=== PATIENT | male | born 1960 | race Caucasian/White ===

== ENCOUNTER 2017-07-19 19:53 | Emergency (ER) | payer OTHER ==
--- NOTE | 2017-07-19 21:13 | EDM.PDOC ---
ED HPI GENERAL MEDICAL PROBLEM - General Chief Complaint: Skin Complaint Stated Complaint: INFECTION ON RT ARM Time Seen by Provider: 07/19/17 20:53 - History of Present Illness INITIAL COMMENTS - FREE TEXT/NARRATIVE: HISTORY AND PHYSICAL: History of present illness: The patient is a healthy 57-year-old male who is up-to-date on his tetanus and presents with concern about infection on his right forearm that has been ongoing for the last one month. The patient says he had a mole there that he thinks got irritated and it proceeded to get more red and bumpy and crusty scab- like. He says that 2 weeks ago he had a similar rash on his upper thighs and lower abdomen but that has since gone away. Patient does not have any systemic complaints and is concerned because the rash on the forearm has not completely resolved. He has no fevers chills abdominal pain or other rashes currently. Review of systems: As per history of present illness and below otherwise all systems reviewed and negative. Past medical history: As per history of present illness and as reviewed below otherwise noncontributory. Surgical history: As per history of present illness and as reviewed below otherwise noncontributory. Social history: No reported history of drug or alcohol abuse. Family history: As per history of present illness and as reviewed below otherwise noncontributory. Physical exam: Gen.: Well-developed well-nourished man who is nontoxic and vital signs have been reviewed by me HEENT: Atraumatic, normocephalic, negative for conjunctival pallor or scleral icterus, mucous membranes moist, throat clear, neck supple, nontender, trachea midline. Lungs: Clear to auscultation, breath sounds equal bilaterally, chest nontender. Heart: S1S2, regular in rhythm no overt murmurs Abdomen: Soft, nondistended, nontender. NABS Pelvis: Deferred Genitourinary: Deferred. Rectal: Deferred. Extremities: Atraumatic, negative for cords or calf pain. Neurovascular unremarkable. Full range of motion without defects or deficits. Please see skin exam for right forearm Neuro: Awake, alert, oriented. Cranial nerves II through XII unremarkable. Cerebellum unremarkable. Motor and sensory unremarkable throughout. Exam nonfocal. Skin: At the right upper forearm on the dorsal aspect there is a scab-like areas seen which is job and yellow and crusty-like in character with a surrounding well demarcated from the erythematous rash. It does not streak up his arm in the compartment is soft. There is no gross drainage or fluctuance appreciated and no crepitance neurovascular is intact in the arm Diagnostics: [] Therapeutics: [] I discussed with the patient that this is likely a strep infection and that I will place him on oral antibiotics as well as Bactroban. Impression: Strep infection/impetigo right forearm Definitive disposition and diagnosis as appropriate pending reevaluation and review of above. right forearm Pain Score (Numeric/FACES): 2 - Related Data Allergies Allergy/AdvReac Type Severity Reaction Status Date / Time meperidine [From Demerol] Allergy Other Verified 07/19/17 20:39 seasonal Allergy Sneezing Uncoded 07/19/17 20:39 Home Meds: Home Meds . [No Known Home Meds] 07/19/17 [History] ED ROS GENERAL - Review of Systems Review Of Systems: ROS reveals no pertinent complaints other than HPI. ED EXAM, SKIN/RASH Exam: See Below (See dictation) Course - Vital Signs Last Recorded V/S: Last Vital Signs Temp 36.4 C 07/19/17 20:32 Pulse 60 07/19/17 20:32 Resp 18 07/19/17 20:32 BP 139/85 07/19/17 20:32 Pulse Ox 98 07/19/17 20:32 Departure - Departure Time of Disposition: 21:12 Disposition: Home, Self-Care 01 Condition: Good Clinical Impression: Impetigo Cellulitis Qualifiers: Site of cellulitis: extremity Site of cellulitis of extremity: upper extremity Laterality: right Qualified Code(s): L03.113 - Cellulitis of right upper limb - Discharge Information Referrals: PCP,None [Primary Care Provider] - Additional Instructions: The following information is given to patients seen in the emergency department who are being discharged to home. This information is to outline your options for follow-up care. We provide all patients seen in our emergency department with a follow-up referral. The need for follow-up, as well as the timing and circumstances, are variable depending upon the specifics of your emergency department visit. If you don't have a primary care physician on staff, we will provide you with a referral. We always advise you to contact your personal physician following an emergency department visit to inform them of the circumstance of the visit and for follow-up with them and/or the need for any referrals to a consulting specialist. The emergency department will also refer you to a specialist when appropriate. This referral assures that you have the opportunity for followup care with a specialist. All of these measure are taken in an effort to provide you with optimal care, which includes your followup. Under all circumstances we always encourage you to contact your private physician who remains a resource for coordinating your care. When calling for followup care, please make the office aware that this follow-up is from your recent emergency room visit. If for any reason you are refused follow-up, please contact the [facility] emergency department at and ask to speak to the emergency department charge nurse. [facility] Primary care- Internal Medicine and Family [address] [address] Please take oral antibiotics and apply topical antibacterial to the area as directed. Please call and follow-up with one of our clinic providers for reevaluation of this care plan. Return to ER as needed and as discussed. Do not manipulate the area.
== END 2017-07-19 21:20 | disposition home or self-care (01) ==
LOC: MW.ED 19:53
DX: L03.113 Cellulitis of right upper limb (principal); B95.5 Unspecified streptococcus as the cause of diseases classified elsewhere; L01.00 Impetigo, unspecified; Z88.5 Allergy status to narcotic agent; Z91.09 Other allergy status, other than to drugs and biological substances
CPT/HCPCS: 99282; 99283

== ENCOUNTER 2017-07-24 09:42 | Emergency (ER) | payer OTHER ==
--- NOTE | 2017-07-24 10:17 | EDM.PDOC ---
ED HPI GENERAL MEDICAL PROBLEM - General Chief Complaint: Skin Complaint Stated Complaint: right arm infection Time Seen by Provider: 07/24/17 10:17 Source of Information: Reports: Patient - History of Present Illness INITIAL COMMENTS - FREE TEXT/NARRATIVE: HISTORY AND PHYSICAL: History of present illness: [Patient presents with a dermatitis/cellulitis on his right forearm, he has minimal involvement on the left. He has been having difficulty with rashes over the last week to 2 weeks. Has pictures of a similar rash on his trunk and groin area last week which resolved on its own, rash began on his right forearm is scaly there is a scab over the lesion. He was started on Bactroban and amoxicillin for an impetiginous type infection. He is on day 5 of treatment for this. He had returned home to [place] and noted that the rash resolved on trunk and groin. On returning to [place] rash flared somewhat on his right upper extremity on return to [place] as well as significant doubling in size of since last night after a phone argument with his over money issues. 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 Fever nausea vomiting chills sweats no chest pain shortness breath headache dizziness palpitation no bowel or urine symptoms Review of systems: As per history of present illness and below otherwise all systems reviewed and negative. Past medical history: As per history of present illness and as reviewed below otherwise noncontributory. Surgical history: As per history of present illness and as reviewed below otherwise noncontributory. Social history: No reported history of drug or alcohol abuse. Family history: As per history of present illness and as reviewed below otherwise noncontributory. Physical exam: HEENT: Atraumatic, normocephalic, pupils reactive, negative for conjunctival pallor or scleral icterus, mucous membranes moist, throat clear, neck supple, nontender, trachea midline. Lungs: Clear to auscultation, breath sounds equal bilaterally, chest nontender. Heart: S1S2, regular, negative for clicks, rubs, or JVD. Abdomen: Soft, nondistended, nontender. Negative for masses or hepatosplenomegaly. Negative for costovertebral tenderness. Pelvis: Stable nontender. Genitourinary: Deferred. Rectal: Deferred. Extremities: Atraumatic, negative for cords or calf pain. Neurovascular unremarkable. Neuro: Awake, alert, oriented. Cranial nerves II through XII unremarkable. Cerebellum unremarkable. Motor and sensory unremarkable throughout. Exam nonfocal. Skin red scaly rash with a central scab lesion scab lesion is approximately the size of a quarter is dry nonfluctuant there is some serious E drainage which I have cultured very mild warmth, areas approximately palms sized on the right forearm he also has a small lesion about the size of a quarter starting on the left arm it is red maculopapular lesions with no drainage Diagnostics: [Wound culture] Therapeutics: [Lotrisone twice a day 10 days Continue Bactroban as directed Stop amoxicillin Bactrim double strength by mouth twice a day #20 no refill Impression: [Dermatitis/cellulitis Cannot rule out a neurogenic dermatitis] Definitive disposition and diagnosis as appropriate pending reevaluation and review of above. R Forearm Pain Score (Numeric/FACES): 2 - Related Data Allergies Allergy/AdvReac Type Severity Reaction Status Date / Time meperidine [From Demerol] Allergy Other Verified 07/24/17 09:53 seasonal Allergy Sneezing Uncoded 07/24/17 09:53 Home Meds: Home Meds Mupirocin Oint [Bactroban Oint] 1 applic TOP TID 07/24/17 [History] Penicillin V Potassium [Veetids] 1 tab PO TID 07/24/17 [History] Past Medical History - Past Health History Medical/Surgical History: Denies Medical/Surgical History Other Genitourinary History: testicular CA, underwent radiation Hematologic History: Reports: Other (See Below) Other Hematologic History: "Blood poisoning" Other Oncologic History: Testicular, undergone radiation theraphy - Infectious Disease History Infectious Disease History: Reports: Chicken Pox, Measles, Mumps - Past Surgical History Male Surgical History: Reports: None, Other (See Below) Other Male Surgeries/Procedures: R Orchiectomy Oncologic Surgical History: Reports: None Social & Family History - Family History Family Medical History: Noncontributory - Tobacco Use Smoking Status *Q: Never Smoker Second Hand Smoke Exposure: No - Caffeine Use Caffeine Use: Reports: None - Recreational Drug Use Recreational Drug Use: No ED ROS GENERAL - Review of Systems Review Of Systems: ROS reveals no pertinent complaints other than HPI. ED EXAM, SKIN/RASH Exam: See Below Course - Vital Signs Last Recorded V/S: Last Vital Signs Temp 96.0 F 07/24/17 09:48 Pulse 66 07/24/17 09:48 Resp 18 07/24/17 09:48 BP 125/79 07/24/17 09:48 Pulse Ox 96 07/24/17 09:48 Departure - Departure Time of Disposition: 10:30 Disposition: Home, Self-Care 01 Condition: Good Clinical Impression: Cellulitis Cellulitis Qualifiers: Site of cellulitis: extremity Site of cellulitis of extremity: upper extremity Laterality: right Qualified Code(s): L03.113 - Cellulitis of right upper limb - Discharge Information Referrals: PCP,None [Primary Care Provider] - Forms: ED Department Discharge Additional Instructions: Stop amoxicillin Medication as prescribed Return if symptoms persist or worsen Follow-up with primary care in 2 weeks sooner as needed [facility] - Primary Care [address] [place] [id number] The following information is given to patients seen in the emergency department who are being discharged to home. This information is to outline your options for follow-up care. We provide all patients seen in our emergency department with a follow-up referral. The need for follow-up, as well as the timing and circumstances, are variable depending upon the specifics of your emergency department visit. If you don't have a primary care physician on staff, we will provide you with a referral. We always advise you to contact your personal physician following an emergency department visit to inform them of the circumstance of the visit and for follow-up with them and/or the need for any referrals to a consulting specialist. The emergency department will also refer you to a specialist when appropriate. This referral assures that you have the opportunity for follow-up care with a specialist. All of these measure are taken in an effort to provide you with optimal care, which includes your follow-up. Under all circumstances we always encourage you to contact your private physician who remains a resource for coordinating your care. When calling for follow-up care, please make the office aware that this follow-up is from your recent emergency room visit. If for any reason you are refused follow-up, please contact the [facility] emergency department at and asked to speak to the emergency department charge nurse.
== END 2017-07-24 10:53 | disposition home or self-care (01) ==
LOC: MW.ED 09:42
DX: L03.113 Cellulitis of right upper limb (principal); C62.90 Malignant neoplasm of unspecified testis, unspecified whether descended or undescended; Z88.8 Allergy status to other drugs, medicaments and biological substances
CPT/HCPCS: 87070; 99283